=== PATIENT | male | born 1970 | race Two or more races ===

== ENCOUNTER 2020-04-07 07:49 | Emergency (ER) | payer MEDICAID, OTHER ==
[~2020-04-07] VITALS: Ht 170.2 cm; Wt 69.4 kg
[2020-04-07] MEDS ORDERED: HYDROcodone-ACET 10/325MG TAB PO ONE (08:30)
[2020-04-07] MEDS ORDERED: KETOROLAC TROMETH 60MG/2ML VIAL IM ONE (08:30)
[2020-04-07 08:41] VITALS: BP 126/83
== END 2020-04-07 08:51 | disposition home or self-care (01) ==
LOC: ER 07:49
DX: M54.42 Lumbago with sciatica, left side (principal); M54.16 Radiculopathy, lumbar region
CPT/HCPCS: 96372; 99283; J1885